=== PATIENT | female | born 1990 | race American Indian/Alaskan Native ===

== ENCOUNTER 2019-03-19 15:33 | Emergency (ER) | payer OTHER ==
--- NOTE | 2019-03-19 16:16 | Emergency Department Report ---
Blank Doc - Documentation Documentation: This is a 28-year-old female that presents with pelvic pain and vaginal pain. Denies any dishcarge or urinary symptoms. This initial assessment/diagnostic orders/clinical plan/treatment(s) is/are subject to change based on patient's health status, clinical progression and re- assessment by fellow clinical providers in the ED. Further treatment and workup at subsequent clinical providers discretion. Patient/guardians urged not to elope from the ED as their condition may be serious if not clinically assessed and managed. Initial orders include: 1- Patient sent to [facility] for further evaluation and treatment 2- UA
[2019-03-19 16:17] VITALS: BP 108/69
[2019-03-19 16:47] LABS: Bilirubin,Urine NEG (Negative); Blood,Urine NEG (Negative); Color,Urine Yellow (Yellow); Mucus,Urine FEW /HPF; Protein,Urine <15 mg/dL mg/dL (Negative); Urobilinogen,Urine < 2.0 mg/dL (<2.0)
[2019-03-19 16:53] LABS: HCG Qualitative,Urine Negative (Negative)
[2019-03-19] MEDS ORDERED: ZITHROMAX PO ONE (17:54)
[2019-03-19] MEDS ORDERED: FLAGYL PO ONE (17:54)
[2019-03-19] MEDS ORDERED: ROCEPHIN IM ONE (17:54)
--- NOTE | 2019-03-19 17:59 | Emergency Department Report ---
ED Female HPI - General Chief complaint: Medical Clearance Stated complaint: VAGINAL/STOMACH PAIN Time Seen by Provider: 03/19/19 16:15 Source: patient Mode of arrival: Ambulatory Limitations: No Limitations - History of Present Illness Initial comments: [id number] female presents with vaginal pain 2 days. Patient states that she had sex 3 days ago but her partner she has had pain in the vaginal area since then. She denies vaginal discharge, dysuria, vaginal bleed vaginal itching. Are you Now?: No - Related Data Allergies Allergy/AdvReac Type Severity Reaction Status Date / Time No Known Allergies Allergy Unverified 03/19/19 15:36 ED Review of Systems ROS: Stated complaint: VAGINAL/STOMACH PAIN Other details as noted in HPI Comment: All other systems reviewed and negative ED Past Medical Hx - Past Medical History Previous Medical History?: No - Surgical History Past Surgical History?: Yes Hx Cholecystectomy: Yes Additional Surgical History: C section, D and C, - Social History Smoking Status: Current Every Day Smoker Substance Use Type: None ED Physical Exam - General Limitations: No Limitations General appearance: alert, in no apparent distress - Head Head exam: Present: atraumatic, normocephalic - Eye Eye exam: Present: normal appearance - ENT ENT exam: Present: mucous membranes moist - Neck Neck exam: Present: normal inspection - Respiratory Respiratory exam: Present: normal lung sounds bilaterally. Absent: respiratory distress - Cardiovascular Cardiovascular Exam: Present: regular rate, normal rhythm. Absent: systolic murmur, diastolic murmur, rubs, gallop - GI/Abdominal GI/Abdominal exam: Present: soft, normal bowel sounds. Absent: distended, tenderness - External exam: Present: other (redness in her thighs from rubbing together). Absent: erythema, swelling Speculum exam: Present: normal speculum exam Bi-manual exam: Present: cervical motion tendernes. Absent: adnexal tenderness - Extremities Exam Extremities exam: Present: normal inspection - Back Exam Back exam: Present: normal inspection. Absent: CVA tenderness (R), CVA tenderness (L) - Neurological Exam Neurological exam: Present: alert, oriented X3, normal gait - Psychiatric Psychiatric exam: Present: normal affect, normal mood - Skin Skin exam: Present: warm, dry, intact, normal color. Absent: rash ED Course Vital Signs 03/19/19 16:16 Temperature 98.6 F Pulse Rate 93 H Respiratory 18 Rate Blood Pressure 108/69 O2 Sat by Pulse 100 Oximetry ED Medical Decision Making - Medical Decision Making 28-year-old female presents with STD exposure. ED course: urinalysis obtained. Urinalysis neg Patient received 250 mg of Rocephin, azithromycin 1 g, Flagyl 2 g. Discussed with patient possible STD due to exposure. Discussed with patient findings and treatment Discussed prophylaxis treatment patient is to abstain from sex 7-10 days as treatment. Discussed patient partner knowledge and treatment. Discussed the follow-up with the health department for further STD testing. Patient's alert and oriented times 3. Vital signs are normal patient is in no acute discharge. Patient will be discharged home with instructions. Critical care attestation.: If time is entered above; I have spent that time in minutes in the direct care of this critically ill patient, excluding procedure time. ED Disposition Clinical Impression: Possible exposure to STD Disposition: DC-01 TO HOME OR SELFCARE Is pt being admited?: No Does the pt Need Aspirin: No Condition: Stable Instructions: Cervicitis (ED), Sexually Transmitted Diseases (ED), Safe Sex (ED) Additional Instructions: Make sure to follow up with the primary care physician as discussed. Take all your medications as you've been prescribed. If you have any worsening symptoms or develop new symptoms please return to ED immediately. Referrals: [facility] [Other] - 3-5 Days [facility] [Provider Group] - 3-5 Days Forms: Work/School Release Form(ED) Time of Disposition: 18:00
== END 2019-03-19 18:53 | disposition home or self-care (01) ==
LOC: ED 15:33
DX: R10.2 Pelvic and perineal pain (principal); F17.200 Nicotine dependence, unspecified, uncomplicated; Z90.49 Acquired absence of other specified parts of digestive tract; Z20.2 Contact with and (suspected) exposure to infections with a predominantly sexual mode of transmission
CPT/HCPCS: 81001; 81025; 96372; 99284; J0696

== ENCOUNTER 2019-09-08 04:52 | Emergency (ER) | payer SELFPAY ==
[2019-09-08 05:35] LABS: Basophils # (Auto) 0.1 K/mm3 (0.0-0.1); Basophils % (Auto) 0.6 % (0.0-1.8); Eosinophils # (Auto) 0.1 K/mm3 (0.0-0.4); Hematocrit 33.3 % (30.3-42.9); Hemoglobin 11.1 gm/dl (10.1-14.3); Lymphocytes # (Auto) 3.1 K/mm3 (1.2-5.4); Lymphocytes % (Auto) 36.3 % (13.4-35.0); Mean Corpuscular HGB Conc 33 % (30-34); Mean Corpuscular Volume 85 fl (79-97); Monocytes # (Auto) 0.4 K/mm3 (0.0-0.8); Monocytes % (Auto) 5.2 % (0.0-7.3); Platelet Count 437 K/mm3 (140-440); Red Blood Count 3.91 M/mm3 (3.65-5.03); Red Cell Distribution Width 13.4 % (13.2-15.2)
[2019-09-08 05:38] LABS: Bacteria,Urine 2+ /HPF (Negative); Bilirubin,Urine NEG (Negative); Blood,Urine NEG (Negative); Color,Urine Yellow (Yellow); Mucus,Urine FEW /HPF; Protein,Urine <15 mg/dL mg/dL (Negative); Urobilinogen,Urine < 2.0 mg/dL (<2.0)
[2019-09-08 05:54] LABS: Alanine Aminotransferase 20 units/L (7-56); Albumin 4.1 g/dL (3.9-5); BUN/Creatinine Ratio 13; Blood Urea Nitrogen 8 mg/dL (7-17); Calcium 8.9 mg/dL (8.4-10.2); Hemolysis Index 4
--- NOTE | 2019-09-08 08:01 | Emergency Department Report ---
ED Abdominal Pain HPI - General Chief Complaint: Abdominal Pain Stated Complaint: ABD PAIN Time Seen by Provider: 09/08/19 07:55 Source: patient Mode of arrival: Ambulatory Limitations: No Limitations - History of Present Illness Initial Comments: 8-year-old female who is a rather poor historian. Complains of right sided pelvic pain. She cannot tell me how long she's had it. She cannot tell me when her last menses was. She states that she is now 3 counting the current . She was not aware that she was . She had one voluntary and one spontaneous . She has no history of ectopic . She does not complain of vaginal bleeding. She does not know her blood type. MD Complaint: abdominal pain -: unknown Location: RLQ Radiation: none Migration to: no migration Severity: moderate Quality: aching Consistency: intermittent Improves With: nothing Worsens With: nothing Associated Symptoms: denies other symptoms - Related Data Allergies Allergy/AdvReac Type Severity Reaction Status Date / Time No Known Allergies Allergy Unverified 03/19/19 15:36 ED Review of Systems ROS: Stated complaint: ABD PAIN Other details as noted in HPI Constitutional: denies: chills, fever Eyes: denies: eye pain, eye discharge, vision change ENT: denies: ear pain, throat pain Respiratory: denies: cough, shortness of breath, wheezing Cardiovascular: denies: chest pain, palpitations Endocrine: no symptoms reported Gastrointestinal: abdominal pain. denies: nausea, diarrhea Genitourinary: denies: urgency, dysuria, discharge Musculoskeletal: denies: back pain, joint swelling, arthralgia Skin: denies: rash, lesions Neurological: denies: headache, weakness, paresthesias Psychiatric: denies: anxiety, depression Hematological/Lymphatic: denies: easy bleeding, easy bruising ED Past Medical Hx - Past Medical History Previous Medical History?: Yes Hx Asthma: Yes - Surgical History Past Surgical History?: Yes Hx Cholecystectomy: Yes Additional Surgical History: C section, D and C, - Social History Smoking Status: Former Smoker Substance Use Type: None ED Physical Exam - General Limitations: Physical Limitation General appearance: alert, in no apparent distress - Head Head exam: Present: atraumatic, normocephalic - Eye Eye exam: Present: normal appearance. Absent: scleral icterus - ENT ENT exam: Present: mucous membranes moist - Neck Neck exam: Present: normal inspection - Respiratory Respiratory exam: Present: normal lung sounds bilaterally. Absent: respiratory distress - Cardiovascular Cardiovascular Exam: Present: regular rate, normal rhythm. Absent: systolic murmur, diastolic murmur, rubs, gallop - GI/Abdominal GI/Abdominal exam: Present: soft, normal bowel sounds, other (obese and exam is limited). Absent: distended, tenderness, guarding, rebound, rigid - Extremities Exam Extremities exam: Present: normal inspection - Back Exam Back exam: Present: normal inspection - Neurological Exam Neurological exam: Present: alert, oriented X3, CN II-XII intact. Absent: motor sensory deficit - Psychiatric Psychiatric exam: Present: normal affect, normal mood - Skin Skin exam: Present: warm, dry, intact, normal color. Absent: rash ED Course Vital Signs 09/08/19 09/08/19 09/08/19 05:19 08:23 10:14 Temperature 98.9 F Pulse Rate 85 78 89 Respiratory 16 16 16 Rate Blood Pressure 134/82 Blood Pressure 132/73 123/56 [Left] O2 Sat by Pulse 99 100 100 Oximetry - Reevaluation(s) Reevaluation #1: A she is resting comfortably. Her abdominal pain is resolved. The importance of follow-up serial hCGs and ultrasound testing has been emphasized. The patient should follow up with my [facility] in 2 days. If she has problems she should return here for serial tests. 09/08/19 12:10 ED Medical Decision Making - Lab Data Result diagrams: 09/08/19 05:21 09/08/19 05:21 Laboratory Results - last 24 hr 09/08/19 09/08/19 09/08/19 05:20 05:21 05:21 WBC 8.6 RBC 3.91 Hgb 11.1 Hct 33.3 MCV 85 MCH 29 MCHC 33 RDW 13.4 Plt Count 437 Lymph % (Auto) 36.3 H [place] % (Auto) 5.2 Eos % (Auto) 1.0 Baso % (Auto) 0.6 Lymph # 3.1 [place] # 0.4 Eos # 0.1 Baso # 0.1 Seg Neutrophils % 56.9 Seg Neutrophils # 4.9 Sodium 136 L Potassium 3.6 Chloride 101.6 Carbon Dioxide 21 L Anion Gap 17 BUN 8 Creatinine 0.6 L Estimated GFR > 60 BUN/Creatinine Ratio 13 Glucose 92 Calcium 8.9 Total Bilirubin 0.20 AST 20 ALT 20 Alkaline Phosphatase 85 Total Protein 8.6 H Albumin 4.1 Albumin/Globulin Ratio 0.9 HCG, Qual Urine Color Yellow Urine Turbidity Hazy Urine pH 6.0 Ur Specific [place] 1.020 Urine Protein <15 mg/dl Urine Glucose (UA) Neg Urine Ketones Neg Urine Blood Neg Urine Nitrite Neg Urine Bilirubin Neg Urine Urobilinogen < 2.0 Ur Leukocyte Esterase Neg Urine WBC (Auto) 3.0 Urine RBC (Auto) 3.0 U Epithel Cells (Auto) 13.0 Urine Bacteria (Auto) 2+ Urine Mucus Few 09/08/19 05:21 WBC RBC Hgb Hct MCV MCH MCHC RDW Plt Count Lymph % (Auto) [place] % (Auto) Eos % (Auto) Baso % (Auto) Lymph # [place] # Eos # Baso # Seg Neutrophils % Seg Neutrophils # Sodium Potassium Chloride Carbon Dioxide Anion Gap BUN Creatinine Estimated GFR BUN/Creatinine Ratio Glucose Calcium Total Bilirubin AST ALT Alkaline Phosphatase Total Protein Albumin Albumin/Globulin Ratio HCG, Qual Positive Urine Color Urine Turbidity Urine pH Ur Specific [place] Urine Protein Urine Glucose (UA) Urine Ketones Urine Blood Urine Nitrite Urine Bilirubin Urine Urobilinogen Ur Leukocyte Esterase Urine WBC (Auto) Urine RBC (Auto) U Epithel Cells (Auto) Urine Bacteria (Auto) Urine Mucus Laboratory Results - last 24 hr 09/08/19 09/08/19 09/08/19 05:20 05:21 05:21 WBC 8.6 RBC 3.91 Hgb 11.1 Hct 33.3 MCV 85 MCH 29 MCHC 33 RDW 13.4 Plt Count 437 Lymph % (Auto) 36.3 H [place] % (Auto) 5.2 Eos % (Auto) 1.0 Baso % (Auto) 0.6 Lymph # 3.1 [place] # 0.4 Eos # 0.1 Baso # 0.1 Seg Neutrophils % 56.9 Seg Neutrophils # 4.9 Sodium 136 L Potassium 3.6 Chloride 101.6 Carbon Dioxide 21 L Anion Gap 17 BUN 8 Creatinine 0.6 L Estimated GFR > 60 BUN/Creatinine Ratio 13 Glucose 92 Calcium 8.9 Total Bilirubin 0.20 AST 20 ALT 20 Alkaline Phosphatase 85 Total Protein 8.6 H Albumin 4.1 Albumin/Globulin Ratio 0.9 HCG, Qual HCG, Quant Urine Color Yellow Urine Turbidity Hazy Urine pH 6.0 Ur Specific [place] 1.020 Urine Protein <15 mg/dl Urine Glucose (UA) Neg Urine Ketones Neg Urine Blood Neg Urine Nitrite Neg Urine Bilirubin Neg Urine Urobilinogen < 2.0 Ur Leukocyte Esterase Neg Urine WBC (Auto) 3.0 Urine RBC (Auto) 3.0 U Epithel Cells (Auto) 13.0 Urine Bacteria (Auto) 2+ Urine Mucus Few Blood Type Antibody Screen 09/08/19 09/08/19 09/08/19 05:21 08:13 08:13 WBC RBC Hgb Hct MCV MCH MCHC RDW Plt Count Lymph % (Auto) [place] % (Auto) Eos % (Auto) Baso % (Auto) Lymph # [place] # Eos # Baso # Seg Neutrophils % Seg Neutrophils # Sodium Potassium Chloride Carbon Dioxide Anion Gap BUN Creatinine Estimated GFR BUN/Creatinine Ratio Glucose Calcium Total Bilirubin AST ALT Alkaline Phosphatase Total Protein Albumin Albumin/Globulin Ratio HCG, Qual Positive HCG, Quant 2405 H Urine Color Urine Turbidity Urine pH Ur Specific [place] Urine Protein Urine Glucose (UA) Urine Ketones Urine Blood Urine Nitrite Urine Bilirubin Urine Urobilinogen Ur Leukocyte Esterase Urine WBC (Auto) Urine RBC (Auto) U Epithel Cells (Auto) Urine Bacteria (Auto) Urine Mucus Blood Type AB POSITIVE Antibody Screen Negative - Radiology Data interpreted by me: FINDINGS: Uterus: The uterus is anteverted and measures 10.4 x 4.9 x 5.0 cm. Small intramural fibroid in the posterior wall is identified measuring up to 7 mm. Gestational Sac: There is suggestion of a tiny intrauterine gestational sac on the transvaginal images only. Average diameter measures 5.1 mm which correlates with a 5 week 2 day . Yolk Sac: There is suggestion of a small yolk sac. Fetus/Embryo: Not seen Embryonic/ cardiac activity: Not seen Ovaries: The right ovary is normal in size and appearance with normal blood flow, measuring 5.0 x 2.4 x 2.9 cm. The left ovary is normal in size and appearance with normal blood flow, measuring 2.4 x 1.3 x 1.9 cm. Hypoechoic space-occupying mass in the right ovary with peripheral vascularity is most likely the corpus luteum. Additional findings: None. IMPRESSION Probable very early intrauterine as described. No convincing pole or heart rate could be documented at this time. Close interval follow-up is recommended. Critical care attestation.: If time is entered above; I have spent that time in minutes in the direct care of this critically ill patient, excluding procedure time. ED Disposition Clinical Impression: Abdominal pain Qualifiers: Abdominal location: right lower quadrant Qualified Code(s): R10.31 - Right lower quadrant pain Qualifiers: Weeks of gestation: less than 8 weeks Qualified Code(s): Z3A.01 - Less than 8 weeks gestation of Disposition: TO HOME OR SELFCARE Is pt being admited?: No Does the pt Need Aspirin: No Condition: Stable Instructions: (ED), Abdominal Pain (ED) Additional Instructions: Is extremely important you get repeat hormone level blood work in 2 days. A repeat ultrasound will also be needed. Return to the emergency department if you have any significant abdominal pain weakness or dizziness or any acute change whatsoever. Return if you cannot get a repeat blood test in 2 days. Tylenol as needed for pain. Referrals: [facility] [Primary Care Provider] - 3-5 Days [facility] [Provider Group] - 2-3 Days Time of Disposition: 12:18
[2019-09-08] MEDS ORDERED: NACL 0.9% 1000 ML 1,000 ML IV ONE (08:03)
--- NOTE | 2019-09-08 09:32 | Ultrasound Report ---
ULTRASOUND OB LESS THAN EQUAL TO 14 WEEKS FETUS ULTRASOUND OB TRANSVAGINAL HISTORY: Abdominal pain during . Positive urine test. COMPARISON: None. TECHNIQUE: Routine transabdominal and transvaginal OB ultrasound performed. FINDINGS: Uterus: The uterus is anteverted and measures 10.4 x 4.9 x 5.0 cm. Small intramural fibroid in the po sterior wall is identified measuring up to 7 mm. Gestational Sac: There is suggestion of a tiny intrauterine gestational sac on the transvaginal image s only. Average diameter measures 5.1 mm which correlates with a 5 week 2 day . Yolk Sac: There is suggestion of a small yolk sac. Fetus/Embryo: Not seen Embryonic/ cardiac activity: Not seen Ovaries: The right ovary is normal in size and appearance with normal blood flow, measuring 5.0 x 2. 4 x 2.9 cm. The left ovary is normal in size and appearance with normal blood flow, measuring 2.4 x 1.3 x 1.9 cm. Hypoechoic space-occupying mass in the right ovary with peripheral vascularity is most likely the corpus luteum. Additional findings: None. IMPRESSION Probable very early intrauterine as described. No convincing pole or heart rate could be documented at this time. Close interval follow-up is recommended. Signer Name: Guilherme Scanlon Jr, MD Signed: 09/08/2019 9:27 AM Workstation Name: [id number]
[2019-09-08 10:15] VITALS: BP 123/56
== END 2019-09-08 12:33 | disposition home or self-care (01) ==
LOC: ED 04:52
DX: O26.891 Other specified pregnancy related conditions, first trimester (principal); R10.31 Right lower quadrant pain; Z90.49 Acquired absence of other specified parts of digestive tract; Z87.891 Personal history of nicotine dependence; Z3A.01 Less than 8 weeks gestation of pregnancy
CPT/HCPCS: 36415; 76801; 76817; 80053; 81001; 84702; 84703; 85025; 86850; 86900; 86901; 99284; J7030

== ENCOUNTER 2019-09-11 13:06 | Emergency (ER) | payer SELFPAY ==
[2019-09-11 13:16] VITALS: BP 136/86
--- NOTE | 2019-09-11 13:17 | Emergency Department Report ---
Blank Doc - Documentation Documentation: 28-year-old female that presents with HCG quant recheck. Was told to come back to the ED for test. Deneis any vaginal bleeding or pain. This initial assessment/diagnostic orders/clinical plan/treatment(s) is/are subject to change based on patient's health status, clinical progression and re- assessment by fellow clinical providers in the ED. Further treatment and workup at subsequent clinical providers discretion. Patient/guardians urged not to elope from the ED as their condition may be serious if not clinically assessed and managed. Initial orders include: 1- Patient sent to [facility] for further evaluation and treatment 2- Quant preg test
--- NOTE | 2019-09-11 14:29 | Emergency Department Report ---
ED General Adult HPI - General Chief complaint: Recheck/Abnormal Lab/Rx Stated complaint: RECHECK BLOOD Time Seen by Provider: 09/11/19 13:15 Source: patient Mode of arrival: Ambulatory Limitations: No Limitations - History of Present Illness Initial comments: Patient is 28 years old female presented to the ER for recheck of beta hCG. Patient was seen here 3 days ago and asked to come back for repeat of beta hCG. Patient is still denying any abdominal pain, vaginal bleeding or vaginal discharge. - Related Data Allergies Allergy/AdvReac Type Severity Reaction Status Date / Time No Known Allergies Allergy Unverified 03/19/19 15:36 ED Review of Systems ROS: Stated complaint: RECHECK BLOOD Other details as noted in HPI Comment: All other systems reviewed and negative Constitutional: denies: chills, fever Cardiovascular: denies: chest pain Gastrointestinal: denies: abdominal pain, nausea Genitourinary: denies: dysuria ED Past Medical Hx - Past Medical History Hx Asthma: Yes - Surgical History Hx Cholecystectomy: Yes Additional Surgical History: C section, D and C, - Social History Smoking Status: Never Smoker Substance Use Type: None ED Physical Exam - General Limitations: No Limitations General appearance: alert, in no apparent distress - Head Head exam: Present: atraumatic, normocephalic - Neck Neck exam: Present: normal inspection - Respiratory Respiratory exam: Present: normal lung sounds bilaterally - Cardiovascular Cardiovascular Exam: Present: regular rate, normal heart sounds - GI/Abdominal GI/Abdominal exam: Present: soft, normal bowel sounds. Absent: distended, tenderness, guarding, rebound, rigid - Extremities Exam Extremities exam: Present: normal inspection, full ROM, normal capillary refill - Back Exam Back exam: Present: normal inspection, full ROM. Absent: CVA tenderness (R), CVA tenderness (L) - Neurological Exam Neurological exam: Present: alert, oriented X3, CN II-XII intact ED Course Vital Signs 09/11/19 13:12 Temperature 98.3 F Pulse Rate 109 H Respiratory 18 Rate Blood Pressure 136/86 O2 Sat by Pulse 96 Oximetry ED Medical Decision Making - Medical Decision Making Patient is 28 years old female presented to the ER for recheck of beta hCG. Danny lagunas was seen here 3 days ago and asked to come back for repeat of beta hCG. Patient is still denying any abdominal pain, vaginal bleeding or vaginal discharge. Patient beta hCG today is 7616. Patient given my [facility] to follow-up with for care. Critical care attestation.: If time is entered above; I have spent that time in minutes in the direct care of this critically ill patient, excluding procedure time. ED Disposition Clinical Impression: Disposition: DC-01 TO HOME OR SELFCARE Is pt being admited?: No Condition: Stable Instructions: (ED) Referrals: [facility] [Provider Group] - 3-5 Days
== END 2019-09-11 14:46 | disposition home or self-care (01) ==
LOC: ED 13:06
DX: Z32.00 Encounter for pregnancy test, result unknown (principal); J45.909 Unspecified asthma, uncomplicated; Z90.49 Acquired absence of other specified parts of digestive tract
CPT/HCPCS: 36415; 84702; 99283

== ENCOUNTER 2019-12-19 20:43 | Emergency (ER) | payer MEDICAID ==
--- NOTE | 2019-12-19 22:46 | Event Note ---
ED Screening Note Date of service: 12/19/19 Time: 22:37 ED Screening Note: This is a 29 y.o. F. that presents to the ER for evaluation after syncopal episode. Patient states she passed out while in [facility] around 1900. She is 19 weeks . [employer] Dr. Grover at [facility]. Currently taking vitamins and antibiotics for UTI. Patient reports syncope and dizziness with prior pregnancies. This initial assessment/diagnostic orders/clinical plan/treatment(s) is/are subject to change based on patients health status, clinical progression and re- assessment by fellow clinical providers in the ED. Further treatment and workup at subsequent clinical providers discretion. Patient/guardian urged not to elope from the ED as their condition may be serious if not clinically assessed and managed. Initial orders include: POC 77 EKG Labs
[2019-12-20] MEDS ORDERED: ACETAMINOPHEN 325 MG TAB PO ONE (00:46)
--- NOTE | 2019-12-20 00:46 | Emergency Department Report ---
HPI - General Chief Complaint: Syncope Time Seen by Provider: 12/19/19 22:37 - HPI HPI: 29-year-old -[place] female presents to the emergency department via EMS from [facility] after passing out while shopping. The patient says that she was feeling dizzy and says that she asked for some assistance at [facility] and wanted an electric cart. She felt that she was being ignored and was not getting appropriate assistance. She became very upset and at some point passed out. The patient is currently about 19 weeks . She says that she has been having some lower abdominal and/or pelvic pain since passing out. She has a mild headache. She denies any vision change, slurred speech, numbness or paresthesias, chest pain, or any neurological deficits. She did not take anything, nor was given anything, for her symptoms prior to arrival today. She has a past medical history of asthma and anemia. Her APPLIQUER is a Dr. Grover. ED Past Medical Hx - Past Medical History Previous Medical History?: Yes Hx Asthma: Yes Additional medical history: Anemia - Surgical History Past Surgical History?: Yes Hx Cholecystectomy: Yes Additional Surgical History: C section, D and C, - Social History Smoking Status: Never Smoker Substance Use Type: None ED Review of Systems ROS: Stated complaint: FAINTING Other details as noted in HPI Comment: All other systems reviewed and negative Constitutional: denies: chills, fever Eyes: denies: eye pain, vision change ENT: denies: ear pain, throat pain Respiratory: denies: cough, shortness of breath Cardiovascular: syncope. denies: chest pain Gastrointestinal: abdominal pain. denies: vomiting Genitourinary: denies: dysuria, discharge Musculoskeletal: denies: back pain, arthralgia Skin: denies: rash, lesions Neurological: headache. denies: weakness, numbness, paresthesias Physical Exam - Physical Exam Vital Signs: Vital Signs 12/19/19 21:00 Temperature 99.2 F Pulse Rate 78 Respiratory 18 Rate Blood Pressure 115/65 O2 Sat by Pulse 98 Oximetry Physical Exam: GENERAL: The patient is well-developed well-nourished. HEENT: Normocephalic. Atraumatic. Patient has moist mucous membranes. No nystagmus. EYES: Extraocular motions are intact. NECK: Supple. Trachea is midline. CHEST/LUNGS: Clear to auscultation. There is no respiratory distress noted. HEART/CARDIOVASCULAR: Regular. There is no tachycardia. There is no murmur. ABDOMEN: Abdomen is soft. No lower abdominal tenderness to palpation. No guarding. Patient has normal bowel sounds. There is no abdominal distention. SKIN:Skin is warm and dry. . NEURO: The patient is awake, alert, and oriented. The patient is cooperative. The patient has no focal neurologic deficits. Normal speech. Cranial nerves II through XII grossly intact. No facial asymmetry. No pronator drift or dysmetria. MUSCULOSKELETAL: There is no tenderness or deformity. There is no limitation range of motion. There is no evidence of acute injury. ED Course Vital Signs 12/19/19 21:00 Temperature 99.2 F Pulse Rate 78 Respiratory 18 Rate Blood Pressure 115/65 O2 Sat by Pulse 98 Oximetry ED Medical Decision Making - Lab Data Result diagrams: 12/20/19 00:22 12/20/19 00:22 - EKG Data -: EKG Interpreted by Ri EKG shows normal: sinus rhythm (PACs), axis, intervals, QRS complexes, ST-T waves Rate: normal - EKG Data When compared to previous EKG there are: previous EKG unavailable Interpretation: normal EKG - Radiology Data Radiology results: report reviewed ULTRASOUND OBSTETRIC Indication: , pelvic pain Findings: There is a single intrauterine . BPD = 4.4 cm = 19 weeks, 3 day(s). Head circumference = 16.2 cm = 19 weeks, 0 day(s). Abdominal circumference = 14.2 cm = 19 weeks, 4 day(s). Femur length = 3.2 cm = 20 weeks, 0 day(s). Overall estimated sonographic age = 19 weeks, 4 day(s). heart rate is 143 beats per minute. Estimated weight is 305 grams position is transverse with head on maternal right. Cervix appears closed. Cervix measures 3.7 cm in length Placenta is anterior on the left and grade 0 . Amniotic fluid volume appears normal. Impression: 1. Single living intrauterine with estimated sonographic age of 19 weeks, 4 day(s). 2. No sonographic abnormality identified. Signer Name: Jasmeet Valentine MD - Medical Decision Making This patient presents after having a syncopal episode while shopping. The patient is also at about 19 weeks. On examination the patient does not have any focal, motor or sensory deficits and her cranial nerves are intact. An EKG was done that does not show any ST elevation MN, ischemia or dysrhythmia. Since she had the complaint of some lower abdominal and/or pelvic discomfort, an ultrasound was done that shows a live intrauterine at 19 weeks and 4 days. The patient's labs were unremarkable including CBC, metabolic panel, TSH. The patient was reevaluated multiple times over multiple hours and has remained stable without any further syncopal episodes or any signs of any neurological deficits. Vital signs stable throughout her ED course. The patient was seen ambulatory within the emergency department and both appeared and feels stable. Patient has been instructed to follow-up with her APPLIQUER and to return to the emergency Department with any worsening of her symptoms, further episodes of syncope, or with any acute distress. - Differential Diagnosis vasovagal, orthostatic hypotension, dysrhythmia, hypoglycemia Critical Care Time: No Critical care attestation.: If time is entered above; I have spent that time in minutes in the direct care of this critically ill patient, excluding procedure time. ED Disposition Clinical Impression: Qualifiers: Weeks of gestation: 19 weeks Qualified Code(s): Z3A.19 - 19 weeks gestation of Syncope Qualifiers: Syncope type: unspecified Qualified Code(s): R55 - Syncope and collapse Disposition: TO HOME OR SELFCARE Is pt being admited?: No Condition: Stable Instructions: (ED), Syncope (ED) Additional Instructions: Please follow up with your APPLIQUER in the next few days. Return to the emergency Department with any further episodes of passing out, development of vaginal bleeding, sharp pelvic pains, or with any acute distress. Referrals: PCP, Your [Other] - 2-3 Days OBGYN, Your [Other] - 2-3 Days Time of Disposition: 03:01
[2019-12-20 00:47] LABS: Basophils % (Auto) 0.2 % (0.0-1.8); Eosinophils % (Auto) 0.3 % (0.0-4.3); Hematocrit 30.9 % (30.3-42.9); Hemoglobin 10.4 gm/dl (10.1-14.3); Lymphocytes # (Auto) 2.7 K/mm3 (1.2-5.4); Lymphocytes % (Auto) 23.4 % (13.4-35.0); Mean Corpuscular HGB Conc 34 % (30-34); Mean Corpuscular Volume 90 fl (79-97); Monocytes # (Auto) 0.6 K/mm3 (0.0-0.8); Monocytes % (Auto) 5.1 % (0.0-7.3); Platelet Count 356 K/mm3 (140-440); Red Blood Count 3.45 M/mm3 (3.65-5.03); Red Cell Distribution Width 13.5 % (13.2-15.2)
[2019-12-20 01:06] LABS: BUN/Creatinine Ratio 18; Blood Urea Nitrogen 9 mg/dL (7-17); Calcium 9.7 mg/dL (8.4-10.2); Hemolysis Index 0
--- NOTE | 2019-12-20 01:24 | Ultrasound Report ---
ULTRASOUND OBSTETRIC Indication: , pelvic pain Findings: There is a single intrauterine . BPD = 4.4 cm = 19 weeks, 3 day(s). Head circumference = 16.2 cm = 19 weeks, 0 day(s). Abdominal circumference = 14.2 cm = 19 weeks, 4 day(s). Femur length = 3.2 cm = 20 weeks, 0 day(s). Overall estimated sonographic age = 19 weeks, 4 day(s). heart rate is 143 beats per minute. Estimated weight is 305 grams position is transverse with head on maternal right. Cervix appears closed. Cervix measures 3.7 cm in length Placenta is anterior on the left and grade 0 . Amniotic fluid volume appears normal. Impression: 1. Single living intrauterine with estimated sonographic age of 19 weeks, 4 day(s). 2. No sonographic abnormality identified. Signer Name: Jasmeet Valentine MD Signed: 12/20/2019 1:20 AM Workstation Name: [id number]
[2019-12-20 03:22] VITALS: BP 110/73
== END 2019-12-20 04:24 | disposition home or self-care (01) ==
LOC: ED 20:43
DX: O26.892 Other specified pregnancy related conditions, second trimester (principal); R55 Syncope and collapse; R42 Dizziness and giddiness; Z3A.19 19 weeks gestation of pregnancy
CPT/HCPCS: 36415; 76805; 80048; 82962; 84443; 84703; 85025; 93005; 93010; 99284